=== PATIENT | male | born 1990 | race Caucasian/White ===

== ENCOUNTER 2019-09-12 19:33 | Emergency (ER) | payer SELFPAY ==
[~2019-09-12] VITALS: Ht 182.9 cm; Wt 104.0 kg
[2019-09-12 22:02] VITALS: BP 138/76
== END 2019-09-13 00:43 | disposition left against medical advice (07) ==
LOC: EDBD 19:33 → ER 21:06
DX: S00.83XA Contusion of other part of head, initial encounter (principal); W18.39XA Other fall on same level, initial encounter; Y93.89 Activity, other specified; Y92.89 Other specified places as the place of occurrence of the external cause; Y99.8 Other external cause status; F10.129 Alcohol abuse with intoxication, unspecified; Y90.0 Blood alcohol level of less than 20 mg/100 ml
CPT/HCPCS: 99283; Z7610